=== PATIENT | male | born 1955 | race Caucasian/White ===

== ENCOUNTER 2019-04-22 22:06 | Emergency (ER) | payer MEDICARE, MEDICAID ==
[~2019-04-22] VITALS: Ht 172.7 cm; Wt 72.6 kg
[2019-04-22 22:11] VITALS: BP 139/71
--- NOTE | 2019-04-22 22:18 | NUR ---
PT AMBULATED WITH WALKER ASSIST TO BED 7.
--- NOTE | 2019-04-22 22:30 | NUR ---
64/M BIB FAMILY, C/O INSOMNIA AND ANXIETY X4 DAYS. REPORTS INTERMITTENT WEAKNESS. DENIES FEVER, COUGH, CP, SOB, N/V, SI/HI, OR HALLUCINATIONS. PT AOX4, AMBULATORY, SKIN NORMAL WARM DRY, +2 EQUAL PERIPHERAL STRENGTH. LUNG SOUNDS CLEAR BL. HX DM, HTN, BPH, ANXIETY RX PROPANOLOL, TAMSULOSIN, TRINTELLIX, DOXAZOSIN
--- NOTE | 2019-04-22 22:33 | NUR ---
DR. QUEVEDO BEDSIDE EVALUATING PT
== END 2019-04-22 22:40 | disposition home or self-care (01) ==
LOC: MED 22:06
DX: F41.9 Anxiety disorder, unspecified (principal); G47.00 Insomnia, unspecified; F17.200 Nicotine dependence, unspecified, uncomplicated; I10 Essential (primary) hypertension; Z88.6 Allergy status to analgesic agent; Z98.890 Other specified postprocedural states
CPT/HCPCS: 99284

== ENCOUNTER 2019-05-14 21:33 | Emergency (ER) | payer MEDICARE, MEDICAID ==
[~2019-05-14] VITALS: Ht 172.7 cm; Wt 80.7 kg
[2019-05-14 21:37] VITALS: BP 120/68
--- NOTE | 2019-05-14 21:46 | NUR ---
PT AMBULATED USING HIS WALKER BACK TO LOBBY WITH HIS DAUGHTER, RADHAS
--- NOTE | 2019-05-14 21:58 | NUR ---
PT CAME IN TO ER WITH C/O MEDICATION REFILL REQUEST. PT IS REQUESTING FOR A MEDICATION REFILL OF HYDROXYZINE HCL 25MG 3 X A DAY FOR ANXIETY. PT IS ALSO TAKING TRINTELLIX 5MG 1 X A DAY FOR ANXIETY. PT IS A/OX4. PT STATED HE HAS AN OPP WITH PCP ON May FOR A PHYSICIAL AND FOLLOW UP. ER MD MADE AWARE OF STATUS. SAFETY MEASURES IN PLACE.
--- NOTE | 2019-05-14 22:03 | NUR ---
Dr. Yi examining patient.
[2019-05-14 22:07] VITALS: BP 120/68
--- NOTE | 2019-05-14 22:07 | NUR ---
Patient discharged with v/s stable. Written and verbal after care instructions given and explained. Patient alert, oriented and verbalized understanding of instructions. Ambulatory with WALKER ASSISTANCE,STEADY GAIT, WITH DAUGTER AT SIDE. All questions addressed prior to discharge. ID band removed. Patient advised to follow up with PMD. Rx of HYDROXYZINE WAS given. Patient educated on indication of medication including possible reaction and side effects. Opportunity to ask questions provided and answered. PT HAS AN OPP. SCHEDULED FOR May WITH PCP FOR A PHYSICAL PER PT.
== END 2019-05-14 22:07 | disposition home or self-care (01) ==
LOC: MED 21:33
DX: F41.9 Anxiety disorder, unspecified (principal); Z76.0 Encounter for issue of repeat prescription; E11.9 Type 2 diabetes mellitus without complications; I10 Essential (primary) hypertension; Z88.6 Allergy status to analgesic agent; Z98.890 Other specified postprocedural states
CPT/HCPCS: 99283

== ENCOUNTER 2020-01-27 21:00 | Emergency (ER) | payer MEDICARE, MEDICAID ==
[~2020-01-27] VITALS: Ht 170.2 cm; Wt 74.8 kg
[2020-01-27 21:13] VITALS: BP 112/77
--- NOTE | 2020-01-27 21:16 | NUR ---
TO LOBBY AA/W BED AMBULATORY
--- NOTE | 2020-01-27 21:37 | NUR ---
PT AMBULATED TO BED 4.
--- NOTE | 2020-01-27 21:40 | NUR ---
PT 64 Y/O MALE BIB SELF FOR C/O DYSURIA, BURNING WHILE URINATING, AND FREQUENCY X A FEW DAYS. PT ADMITS TO HX OF BPH AND HAS HX OF PENILE IMPLANT X 1 YEAR AGO. PT DENIES FLANK PAIN. PT AFEBILE. RESPIRATIONS ARE EVEN AND UNLABORED. DENIES COUGH. LUNG SOUNDS CLEAR A/P BILAT. SKIN IS WARM AND DRY TO TOUCH. PT DENIES N/V/D. VSS. DAUGHTER AT BEDISDE. BED LOCKED AND IN LOWEST POSITON. MEDHX: DM TYPE II, HTN ALLERGIES: ASA
--- NOTE | 2020-01-27 22:05 | NUR ---
DR. WISEMAN AT BEDSIDE.
--- NOTE | 2020-01-27 22:30 | NUR ---
US COLLECTED. Addendum: 01/28/20 at 0222 by [email or web address] *UA COLLECTED
[2020-01-27] MEDS ORDERED: CEPHALEXIN 500 MG CAP PO ONE (22:35)
[2020-01-27 23:10] VITALS: BP 118/86
--- NOTE | 2020-01-27 23:10 | NUR ---
Patient discharged with v/s stable. Written and verbal after care instructions given and explained. Patient alert, oriented and verbalized understanding of instructions. Ambulatory with steady gait. All questions addressed prior to discharge. ID band removed. Patient advised to follow up with PMD. Rx of KEFLEX, PYRIDIUM given. Patient educated on indication of medication including possible reaction and side effects. Opportunity to ask questions provided and answered.
== END 2020-01-27 23:10 | disposition home or self-care (01) ==
LOC: MED 21:00
DX: N39.0 Urinary tract infection, site not specified (principal); E11.9 Type 2 diabetes mellitus without complications; I10 Essential (primary) hypertension; Z79.82 Long term (current) use of aspirin; Z90.79 Acquired absence of other genital organ(s)
CPT/HCPCS: 81002; 87086; 87186; 99283

== ENCOUNTER 2020-03-06 16:34 | Emergency (ER) | payer MEDICARE, MEDICAID ==
[~2020-03-06] VITALS: Ht 170.2 cm; Wt 91.2 kg
[2020-03-06 16:43] VITALS: BP 129/75
--- NOTE | 2020-03-06 16:49 | NUR ---
PT AMBULATED TO BATHROOM, STEADY GAIT.
--- NOTE | 2020-03-06 17:00 | NUR ---
PT AMBULATED TO BED 7, STEADY GAIT.
--- NOTE | 2020-03-06 17:02 | NUR ---
65 Y/M PRESENTS TO ED C DIFFICULTY URINATING X 1 WEEK, DENIES FREQUENCY, BURNING OR HEMATURIA. PT REPORTS 8/10 PAIN WHILE VOIDING. DENIES ANY ABD PAIN. RR EVEN. LUNGS CLEAR. ABD SOFT, BS ACTIVE X 4. SKIN DRY AND WARM TO TOUCH. PMH-DM, HTN, ANXIETY, PROSTATE ALLERGIES- ASA
--- NOTE | 2020-03-06 17:20 | NUR ---
PT TO CT VIA WHEELCHAIR
--- NOTE | 2020-03-06 17:20 | NUR ---
URINE COLLECTED FROM PT
--- NOTE | 2020-03-06 17:31 | NUR ---
Patient returned from CT scan. RN evaluating patient at bedside.
[2020-03-06] MEDS ORDERED: cefTRIAXone 1,000 MG in LIDOCAINE MPF 1% 2.1 ML IM ONE (18:35)
[2020-03-06] MEDS ORDERED: LIDOCAINE MPF 1% 5 ML ONE (18:38)
[2020-03-06] MEDS ORDERED: cefTRIAXone 1,000 MG VIAL ONE (18:38)
[2020-03-06 19:11] VITALS: BP 138/76
[2020-03-06 19:13] LABS: APPEARANCE,URINE SL CLOUDY (CLEAR); BILIRUBIN,URINE NEGATIVE (NEGATIVE); BLOOD, URINE NEGATIVE (NEGATIVE); COLOR,URINE YELLOW (YELLOW); LEUKOCYTE ESTERASE ,URINE 1+ (NEGATIVE); NITRITE, URINE POSITIVE (NEGATIVE); UGLUCOSE NEGATIVE (NEGATIVE)
[2020-03-06 19:29] LABS: RBC,URINE NONE SEEN /HPF (0-5); WBC,URINE 16-25 (MOD) /HPF (0-5)
== END 2020-03-06 19:11 | disposition home or self-care (01) ==
LOC: MED 16:34
DX: N39.0 Urinary tract infection, site not specified (principal); N40.0 Benign prostatic hyperplasia without lower urinary tract symptoms; E11.9 Type 2 diabetes mellitus without complications; I10 Essential (primary) hypertension; Z90.49 Acquired absence of other specified parts of digestive tract; Z88.6 Allergy status to analgesic agent
CPT/HCPCS: 74176; 81001; 87086; 96372; 99284; J0696; J2001

== ENCOUNTER 2021-12-04 18:12 | Emergency (ER) | payer MEDICARE, MEDICAID ==
[~2021-12-04] VITALS: Ht 170.2 cm; Wt 88.9 kg
[2021-12-04 18:44] VITALS: BP 129/71
--- NOTE | 2021-12-04 21:00 | NUR ---
66 YO/M BIB SELF W C/O DECREASED URINE OUTPUT X5 DAYS, + URGENCY, BURNING URINATION, SUPRAPUBIC PAIN 8/10 RADIATING TO L FLANK PRESSURE LIKE. PT DENIES ANY BLOOD IN URINE, OR ABN PENILE DISCHARGE. PT DENIES ANY FEVERS/CHILLS, N/V/D. PT LAYING SUPINE IN BED LOCKED IN LOWEST POSITION W X1 SIDERAIL UP. VSS W BREATHING EVEN AND UNLABORED. NAD NOTED, WILL CONTINUE TO MONITOR. PMH:HTN, DM, ENLARGED PROSTATE NKA
[2021-12-04 21:23] LABS: BASOPHILS # (AUTO) 0.1 K/uL (0.00-0.22); BASOPHILS % (AUTO) 0.7 % (0.0-2.0); EOSINOPHILS % (AUTO) 0.6 % (0.0-4.0); HEMATOCRIT 40.3 % (36-52); HEMOGLOBIN 13.7 g/dL (12.0-18.0); LYMPHOCYTES # (AUTO) 2.2 K/uL (2.0-11.5); LYMPHOCYTES % (AUTO) 28.6 % (20.5-51.1); MEAN CORPUSCULAR HEMOGLOBIN 32 pg (27-31); MEAN CORPUSCULAR HGB CONC 34 g/dL (33-37); MEAN CORPUSCULAR VOLUME 93.3 fL (80-94); MONOCYTES # (AUTO) 0.4 K/uL (0.8-1.0); MONOCYTES % (AUTO) 4.7 % (1.7-9.3); NEUTROPHILS # (AUTO) 5.1 K/uL (1.8-7.7); NEUTROPHILS % (AUTO) 65.4 % (42.2-75.2); PLATELET COUNT (AUTO) 287 K/uL (140-450); RED BLOOD CELL COUNT(AUTO) 4.32 MIL/uL (4.20-6.10); RED CELL DISTRIBUTION WIDTH 14.8 % (11.6-13.7); WHITE BLOOD COUNT (AUTO) 7.7 K/uL (4.8-10.8)
--- NOTE | 2021-12-04 21:27 | NUR ---
US SCANNED UNAVAILABLE AT THIS TIME, MARY MADE AWARE.
[2021-12-04 21:38] LABS: ALBUMIN 3.6 g/dL (3.4-5.0); ANION GAP 13.4 (8-16); CARBON DIOXIDE 28.2 mmol/L (21-32); POTASSIUM 3.6 mmol/L (3.5-5.1); TOTAL BILIRUBIN 0.6 mg/dL (0.0-1.0)
--- NOTE | 2021-12-04 22:24 | NUR ---
bladder scan complete. 120ml of urine in bladder.
[2021-12-04] MEDS ORDERED: CIPR500T4 PO (22:30)
[2021-12-04] MEDS ORDERED: CIPROFLOXACIN 250 MG TAB PO ONE (22:35)
[2021-12-04] MEDS ORDERED: ACETAMINOPHEN 325 MG TAB PO ONE (22:45)
[2021-12-04] MEDS ORDERED: ACET-10509 PO (22:56)
--- NOTE | 2021-12-04 22:56 | NUR ---
PT REPORTING HE HAS A METAL DEVICE IN HIS TESTICLE TO ASSISST W HARIECTION HOWEVER COMPLAINTS ITS BOTHERSOME AND WANTS IT REMOVED. PT REPORTS HE BELIEVES IT IS WHAT IS CAUSING DIFF URINATING, PT ALSO REPORTS HAS HAD ERECTION CONSTANT FOR X2 YRS SINCE DEVICE WAS PUT IN. RODYD MADE AWARE.
[2021-12-04 23:15] VITALS: BP 108/67
--- NOTE | 2021-12-04 23:15 | NUR ---
Patient discharged with v/s stable. Written and verbal after care instructions given and explained. Patient alert, oriented and verbalized understanding of instructions. Ambulatory with steady gait. All questions addressed prior to discharge. ID band removed. Patient advised to follow up with PMD. Rx of TYLENOL, CIPROFLOXACIN given. Patient educated on indication of medication including possible reaction and side effects. Opportunity to ask questions provided and answered.
== END 2021-12-04 23:15 | disposition home or self-care (01) ==
LOC: MED 18:12
DX: N39.0 Urinary tract infection, site not specified (principal); E11.9 Type 2 diabetes mellitus without complications; I10 Essential (primary) hypertension; Z79.899 Other long term (current) drug therapy; Z88.6 Allergy status to analgesic agent
CPT/HCPCS: 36415; 80053; 81002; 85025; 99283